=== PATIENT | female | born 1960 | race American Indian/Alaskan Native ===

== ENCOUNTER 2017-04-21 19:18 | Inpatient (IN) | payer OTHER ==
[2017-04-21] MEDS ORDERED: Sodium Chloride 0.9% 1,000 ML IV STA (19:27)
--- NOTE | 2017-04-21 19:35 | ED PDOC ---
Lower Extremity Pain/Injury Chief Complaint (Provider): Ankle Fracture History Per: Patient Additional Complaint(s): 57 yo female, PMH of DM, presents to ED with complaints of severe left ankle pain and deformity sustained from a near syncopal episode while waiting for the path. pt reports its very hot out and she believes she is dehydrated and became very dizzy and "stumbled." Pt reports she felt an immediate "pop" in her ankle and fell to the floor. Pt did not loose conciseness at anytime. No chest pain or SOB. No previous injury to affected extremity. <Marianne Ross - Last Filed: 04/21/17 19:29> <Marianne Nielsen - Last Filed: 04/21/17 23:41> Time Seen by Provider: 04/21/17 19:23 Chief Complaint (Nursing): Lower Extremity Problem/Injury Supervising Attending Note - Supervising Attending Note The Documented history was done by the: Physician Manager Lighting The documented physical exam was done by the: Physician Manager Lighting, Attending Physician - Attestation: I have personally seen and examined this patient.: Yes I have fully participated in the care of the patient.: Yes I have reviewed all pertinent clinical information, including history, physical exam and plan: Yes <Marianne Nielsen - Last Filed: 04/21/17 23:41> Past Medical History Reviewed: Nursing Documentation, Vital Signs Vital Signs: Last Vital Signs Temp 98.4 F 04/21/17 19:23 Pulse 81 04/21/17 19:23 Resp 16 04/21/17 19:23 BP 89/56 L 04/21/17 19:23 Pulse Ox 100 04/21/17 19:23 - Medical History PMH: Diabetes - Surgical History Surgical History: No Surg Hx - Family History Family History: States: Unknown Family Hx - Living Arrangements Living Arrangements: With Family - Social History Current smoker - smoking cessation education provided: No Alcohol: Social Drugs: Denies <Marianne Ross - Last Filed: 04/21/17 19:29> Vital Signs: Last Vital Signs Temp 98.4 F 04/21/17 19:23 Pulse 82 04/21/17 22:26 Resp 16 04/21/17 19:23 BP 89/56 L 04/21/17 19:23 Pulse Ox 100 04/21/17 22:26 <Marianne Nielsen - Last Filed: 04/21/17 23:41> - Home Medications Home Medications: Ambulatory Orders Medication Instructions Recorded Mv,Calcium,Min/Iron/Folic/Vitk 04/21/17 [Multi For Her Tablet] - Allergies Allergies/Adverse Reactions: Allergies Allergy/AdvReac Type Severity Reaction Status Date / Time No Known Allergies Allergy Verified 04/21/17 19:23 Review of Systems ROS Statement: Except As Marked, All Systems Reviewed And Found Negative Musculoskeletal: Positive for: Other (left ankle pain) <Marianne Ross Last Filed: 04/21/17 19:29> Physical Exam - Reviewed Nursing Documentation Reviewed: Yes Vital Signs Reviewed: Yes - Physical Exam Appears: Positive for: Well, Non-toxic, No Acute Distress Head Exam: Positive for: ATRAUMATIC, NORMAL INSPECTION, NORMOCEPHALIC Skin: Positive for: Normal Color, Warm, DRY Eye Exam: Positive for: EOMI, Normal appearance, PERRL ENT: Positive for: Normal ENT Inspection Neck: Positive for: Normal, Painless ROM Cardiovascular/Chest: Positive for: Regular Rate, Rhythm Respiratory: Positive for: CNT, Normal Breath Sounds Gastrointestinal/Abdominal: Positive for: Normal Exam, Bowel Sounds, Soft Back: Positive for: Normal Inspection Extremity: Positive for: Tenderness, Deformity, Swelling (ecchymosis) Neurologic/Psych: Positive for: Alert, Oriented <Marianne Ross - Last Filed: 04/21/17 19:29> - ECG O2 Sat by Pulse Oximetry: 100 <Marianne Ross - Last Filed: 04/21/17 19:29> - Laboratory Results Result Diagrams: 04/21/17 20:09 04/21/17 20:09 <Marianne Nielsen - Last Filed: 04/21/17 23:41> Medical Decision Making Medical Decision Making: IV access established and treatment initiated with [facility] ordered Podiatry consult placed Case endorsed to FLAVIA Lazo at 20:00 pending podiatry consult and diagnostic review <Marianne Ross Last Filed: 04/21/17 19:29> Disposition - Patient ED Disposition Is Patient to be Admitted: Transfer of Care (yang) - Disposition Disposition: Transfer of Care Disposition Time: 20:00 <Marianne Ross - Last Filed: 04/21/17 19:29> <Marianne Nielsen - Last Filed: 04/21/17 23:41> - Clinical Impression Clinical Impression: Near syncope, Fracture dislocation of ankle - Disposition Condition: FAIR ED Procedural Sedation <Marianne Ross - Last Filed: 04/21/17 19:29> - Pre Anesthesia Assessment Past Medical History: Medications Reviewed, Allergies Reviewed, Record Review Previous Surgies: Reviewed Family History/Social History: Reviewed - Physical Exam/Review of Systems Cardiovascular: Regular Rate and Rhythm, Murmurs, Normal S1, S2 Respiratory/Chest: Clear to Auscultation, Good Air Exchange Neurological: GCS=15, CN II-XII Intact, Speech Normal Abdomen: Tenderness, Distention Mental Status: Alert and Oriented X 3 - Pre-Procedure Airway Assessment History of difficult intubation or surgical airway (i.e trach):: No Inability to extend neck:: No Mouth opening less than two finger breadth:: No Diagnosis of sleep apnea:: No Less than three finger breadth to hyoid bone:: No ASA Criteria: 1 - Healthy, normal. 2 - Mild systemic disease (No functional limitations, mildline obesity, DM withot complications, Hypertention). 3 - Severe systemic disease (Some functional limitation, stable angina, morbid obesity, controlled COPD/Asthma/CHF). 4 - Sever systemic disease constant threat to life (Unstable angina, active symptoms of COPD/Asthma, CHF/ Hypertension. 5 - Moribund ASA Clarification: ASA II Mallampati (airway): Class I - Intra-Procedure (Medications) Medications Given: Sodium Chloride (Sodium Chloride 0.9%) 1,000 mls @ 125 mls/hr IV .Q8H STA Stop: 04/22/17 03:26 Last Admin: 04/21/17 20:05 Dose: 125 mls/hr Discontinued Medications Ketamine HCl (Ketalar) 10 mg IV ONCE ONE Stop: 04/21/17 20:19 Last Admin: 04/21/17 22:12 Dose: 2 ml Ketamine HCl (Ketalar) Confirm Administered Dose 500 mg .ROUTE .STK-MED ONE Stop: 04/21/17 21:19 Morphine Sulfate (Morphine) 4 mg IV ONCE ONE Stop: 04/21/17 19:27 Last Admin: 04/21/17 20:05 Dose: 4 mg Morphine Sulfate (Morphine) 4 mg IVP ONCE ONE Stop: 04/21/17 22:08 Last Admin: 04/21/17 22:13 Dose: 4 mg Morphine Sulfate (Morphine) 4 mg IVP ONCE ONE Stop: 04/21/17 22:31 Last Admin: 04/21/17 23:14 Dose: 4 mg Ondansetron HCl (Zofran Inj) 8 mg IV STAT STA Stop: 04/21/17 20:21 Last Admin: 04/21/17 21:32 Dose: 8 mg Ondansetron HCl (Zofran Inj) Confirm Administered Dose 8 mg .ROUTE .STK-MED ONE Stop: 04/21/17 21:14 Potassium Chloride (K-Dur 20 Meq Er Tab) 40 meq PO ONCE ONE Stop: 04/21/17 21:37 Last Admin: 04/21/17 22:18 Dose: 40 meq Potassium Chloride (K-Dur 20 Meq Er Tab) Confirm Administered Dose 40 meq PO .STK-MED ONE Stop: 04/21/17 22:18 Propofol (Diprivan) 200 mg IV ONCE ONE Stop: 04/21/17 20:19 Last Admin: 04/21/17 22:12 Dose: 200 mg Propofol (Diprivan) Confirm Administered Dose 200 mg .ROUTE .STK-MED ONE Stop: 04/21/17 21:13 - Post-Procedure Post Procedure Note: Pt awake and alert after procedure <Marianne Nielsen - Last Filed: 04/21/17 23:41> - Pre Anesthesia Assessment Chief Complaint: Lower Extremity Problem/Injury
--- NOTE | 2017-04-21 20:17 | CP.PCM.CON ---
History of Present Illness - History of Present Illness History of Present Illness: 57 year old female with PMHx including DM and bariatric surgery was seen today for left ankle pain. Patient states that today around 6:40 pm she was waiting for the PATH train and sustained a near syncopal episode. She states that it was very hot waiting for the train. She said she tripped backwards and felt a pop in her left ankle and fell. She states that she does not have any pain to the ankle when it is at rest, but when it is moved, she has a lot of pain. She states that yesterday her blood sugar was 160 mg/dL but states that she did not take her sugar this morning. She currently denies any n/v/f/c/sob/cp. Past Patient History - Past Social History Alcohol: Social Drugs: Denies Meds Allergies/Adverse Reactions: Allergies Allergy/AdvReac Type Severity Reaction Status Date / Time No Known Allergies Allergy Verified 04/21/17 19:23 - Medications Medications: Current Medications Sodium Chloride (Sodium Chloride 0.9%) 1,000 mls @ 125 mls/hr IV .Q8H STA Stop: 04/22/17 03:26 Last Admin: 04/21/17 20:05 Dose: 125 mls/hr Physical Exam - Constitutional Appears: Well, Non-toxic, No Acute Distress - Extremities Exam Additional comments: Left lower extremity focused exam: Vasc: DP and PT pulses palpable 2/4. CFT < 3 seconds to digits. Skin temperature warm to warm from proximal to distal. Neuro: Gross sensation intact Derm: Non-pitting edema noted to left ankle. No open wounds noted Ortho: Pain on palpation to left ankle. Patient is able to wiggle toes - Neurological Exam Neurological exam: Alert, Oriented x3 - Psychiatric Exam Psychiatric exam: Normal Affect, Normal Mood Results - Vital Signs Recent Vital Signs: Last Vital Signs Temp 98.4 F 04/21/17 19:23 Pulse 81 04/21/17 19:23 Resp 16 04/21/17 19:23 BP 89/56 L 04/21/17 19:23 Pulse Ox 100 04/21/17 19:37 - Labs Result Diagrams: 04/21/17 20:09 04/21/17 20:09 Assessment & Plan - Assessment and Plan (Free Text) Assessment: 57 year old female with displaced left ankle fracture Plan: patient examined and evaluated discussed with attending, Dr. Fuller chart, labs, vitals reviewed Explained conservative and surgical treatment options to patient, and pt expressed understanding, patient agreeable to surgical correction alternatives, complications, benefits, and risks to surgical procedure were explained to patient consent was obtained and left ankle closed reduction was performed in ED under conscisou sedation by ED attending, pt was splinted with plaster AO splint LLE CT ordered Pt to be NPO after midnight Ice elevation-2 pillows at all times pt to OR tomorrow at 5 pm, awaiting medical optimization podiatry will continue to follow patient while in house
[2017-04-21] MEDS ORDERED: Propofol 10 mg/ml Inj (20 ML) IV ONE (20:18)
[2017-04-21] MEDS ORDERED: Ketamine 50 mg/ml Inj (10 ml) IV ONE (20:18)
[2017-04-21 20:38] LABS: BASO % 0.4 % (0.0-2.0); EOS # 0.1 K/uL (0.0-0.7); EOS % 0.7 % (0.0-4.0); HEMOGLOBIN 12.8 g/dL (12.0-16.0); LYMPH # 2.5 K/uL (1.0-4.3); LYMPH % 19.6 % (20.0-40.0); MEAN CELL VOLUME 88.3 fl (81.0-99.0); MEAN CORPUSCULAR HGB CONC 31.7 g/dL (33.0-37.0); MEAN PLATELET VOLUME 9.4 fl (7.2-11.7); MONO # 1.2 K/uL (0.0-0.8); MONO % 9.6 % (0.0-10.0); NEUT # 8.8 K/uL (1.8-7.0); NEUT % 69.7 % (50.0-75.0); RBC 4.56 Mil/uL (3.80-5.20); WHITE BLOOD COUNT 12.7 K/uL (4.8-10.8)
[2017-04-21 20:56] LABS: ALB/GLOB RATIO 1.4 (1.0-2.1); ALBUMIN 4.4 g/dL (3.5-5.0); ALT/SGPT 31 U/L (9-52); AST/SGOT 38 U/L (14-36); BLOOD UREA NITROGEN 27 mg/dl (7-17); CALCIUM 9.7 mg/dL (8.4-10.2); GFR AFRICAN-AMERICAN 37; GFR NON-AFRICAN AMERICAN 31
[2017-04-21] MEDS ORDERED: Propofol 10 mg/ml Inj (20 ML) ONE (21:12)
[2017-04-21] MEDS ORDERED: Ketamine 50 mg/ml Inj (10 ml) ONE (21:18)
[2017-04-21] MEDS ORDERED: Potassium Chloride 20 mEq ER Tab PO ONE ×2 (21:36→22:17)
[2017-04-21 21:42] LABS: INR 1.1 (0.9-1.2); PARTIAL THROMBOPLASTIN TIME 28.8 Seconds (25.6-37.1); PROTHROMBIN TIME 12.7 Seconds (9.8-13.1)
--- NOTE | 2017-04-21 21:45 | ED PDOC ---
- Laboratory Results Result Diagrams: 04/21/17 20:09 04/21/17 20:09 - ECG ECG: Positive for: Viewed By Me (reviewed by ED attending) ECG Rhythm: Positive for: Sinus Rhythm O2 Sat by Pulse Oximetry: 100 - Radiology X-Ray: Viewed By Me X-Ray Interpretation: No Acute Disease <Angi Lazo - Last Filed: 04/22/17 01:38> - Laboratory Results Result Diagrams: 04/22/17 05:40 04/22/17 05:40 <Marianne Nielsen - Last Filed: 04/28/17 14:04> - Progress ED Course And Treament: Case endorsed to jingle writer from Vandana ALEJANDRO pending labs, podiatry eval Patient evaluated by Podiatry resident on-call; will do closed reduction in ED then admit for OR tomorrow evening. Consent for conscious sedation obtained by Dr. Nielsen. 21:30 Podiatry resident's, ED attending Dr. Nielsen at bedside for conscious sedation /reduction. 22:00 Post-reduction films show successful reduction 22:20 Patient awake, alert, oriented Dr. Nielsen discussed case with Dr. Salazar, medical service on-call, for admission. (Angi Lazo) Disposition - POA Present On Arrival: Falls Or Trauma, Poor Glycemic Control - Disposition Disposition: Admitted as In-Patient Disposition Time: 22:12 <Angi Lazo - Last Filed: 04/22/17 01:38> <Marianne Nielsen - Last Filed: 04/28/17 14:04> - Clinical Impression Clinical Impression: Near syncope, Fracture dislocation of ankle - Disposition Condition: FAIR
[2017-04-21] MEDS ORDERED: Morphine 4 MG/ML VIAL IVP ONE (22:30)
[2017-04-22] MEDS ORDERED: Alum-Mag Hydrox-Simethicone Susp (30 mL) PO PRN (01:33)
[2017-04-22] MEDS: Sodium Chloride 0.45% 1,000 ML IV SCH ×2 (01:45→17:54)
[2017-04-22] MEDS: Morphine 4 MG/ML VIAL IVP PRN ×2 (06:15→12:26)
[2017-04-22 07:01] LABS: HEMOGLOBIN 12.9 g/dL (12.0-16.0); MEAN CELL VOLUME 88.2 fl (81.0-99.0); MEAN CORPUSCULAR HEMOGLOBIN 27.7 pg (27.0-31.0); MEAN CORPUSCULAR HGB CONC 31.4 g/dL (33.0-37.0); RBC 4.65 Mil/uL (3.80-5.20); RED CELL DISTRIBUTION WIDTH 14.4 % (11.5-14.5); WHITE BLOOD COUNT 12.6 K/uL (4.8-10.8)
[2017-04-22 07:11] LABS: INR 1.1 (0.9-1.2); PROTHROMBIN TIME 11.9 Seconds (9.8-13.1)
[2017-04-22 07:12] LABS: PARTIAL THROMBOPLASTIN TIME 29.7 Seconds (25.6-37.1)
[2017-04-22 07:17] LABS: ALB/GLOB RATIO 1.3 (1.0-2.1); ALT/SGPT 34 U/L (9-52); AST/SGOT 20 U/L (14-36); BLOOD UREA NITROGEN 23 mg/dl (7-17); CALCIUM 9.5 mg/dL (8.4-10.2); GFR AFRICAN-AMERICAN > 60; GFR NON-AFRICAN AMERICAN 57; HDL CHOLESTEROL 34 MG/DL (30-70)
[2017-04-22 07:21] LABS: T4 8.62 ug/dl (5.5-11.0)
[2017-04-22 07:27] LABS: LDL CHOLESTEROL 147 mg/dL (0-129)
--- NOTE | 2017-04-22 08:07 | CARD ---
APPROVED REPORT EKG Measurement Heart [id number] <Conclusion> Normal sinus rhythm Borderline ECG
--- NOTE | 2017-04-22 08:51 | CP.PCM.PN ---
Subjective - Date & Time of Evaluation Date of Evaluation: 04/22/17 Time of Evaluation: 08:00 - Subjective Subjective: 57 y/o female was seen bedside 1 day s/p ankle trauma secondary to syncopal episode. Pt is AAOx3 and is in NAD. Pt appears to be resting comfortably in her bed. Pt denies of any pain in her ankle today. Pt states that she has not eaten anything since yesterday. Pt denies of any acute overnight events. Pt denies of any F/N/V/C/SOB today. Pt denies of any other pedal complains today. Objective - Vital Signs/Intake and Output Vital Signs (last 24 hours): Temp Pulse Resp BP Pulse Ox 97.8 F 69 20 123/77 98 04/22/17 07:53 04/22/17 07:53 04/22/17 07:53 04/22/17 07:53 04/22/17 07:53 - Medications Medications: Current Medications Al Hydrox/Mg Hydrox/Simethicone (Maalox Plus 30 Ml) 30 ml PO Q6 PRN PRN Reason: Indigestion / Heartburn Sodium Chloride (Sodium Chloride 0.45%) 1,000 mls @ 70 mls/hr IV .[id number] [facility] Stop: 04/23/17 01:35 Last Admin: 04/22/17 01:45 Dose: 70 mls/hr Insulin Human Lispro (Humalog) 0 units SC ACCU-CHECK CRISTHIAN PRN Reason: Protocol Morphine Sulfate (Morphine) 4 mg IVP Q4 PRN PRN Reason: Pain, severe (8-10) Last Admin: 04/22/17 06:15 Dose: 4 mg Ondansetron HCl (Zofran Inj) 4 mg IVP Q6 PRN PRN Reason: Nausea/Vomiting Pantoprazole Sodium (Protonix Ec Tab) 40 mg PO DAILY CRISTHIAN - Labs Labs: 04/22/17 05:40 04/22/17 05:40 PT 11.9 Seconds (9.8-13.1) 04/22/17 05:40 INR 1.1 (0.9-1.2) 04/22/17 05:40 APTT 29.7 Seconds (25.6-37.1) 04/22/17 05:40 - Constitutional Appears: Well, Non-toxic, No Acute Distress - Extremities Exam Additional comments: Pt's dressing is clean, dry and intact. Posterior splint is intact and is in place. - Neurological Exam Neurological Exam: Alert, Awake, Oriented x3 - Psychiatric Exam Psychiatric exam: Normal Affect, Normal Mood Assessment and Plan - Assessment and Plan (Free Text) Assessment: 57 y/o female seen at bedside with displaced left ankle fracture Plan: Pt evaluated and chart reviewed Pt discussed in details with attending Dr. Fuller Labs and vital reviewed: afebrile Pt confirmed NPO status Pt obtained medical optimization - Thank you Dr. Salazar Pt to remain non weight bearing on left lower extremity Pt to elevate her LLE and ICE Pt planned to go to OR for left ankle ORIF at 5:00 PM Podiatry will continue to follow patient while in-house
[2017-04-22] MEDS: Pantoprazole 40 mg EC Tab PO SCH (09:07)
[2017-04-22] MEDS: Insulin Lispro (humaLOG) 100 Units/ml Inj SC SCH ×4 (09:07→22:53)
[2017-04-22] MEDS ORDERED: Pneumococcal 23-Valent Vaccine IM ONE (10:21)
--- NOTE | 2017-04-22 10:45 | RAD ---
HISTORY: clearance COMPARISON: No prior. FINDINGS: LUNGS: The lungs are well inflated and clear. PLEURA: No significant pleural effusion identified, no pneumothorax apparent. CARDIOVASCULAR: Normal. OSSEOUS STRUCTURES: No significant abnormalities. VISUALIZED UPPER ABDOMEN: Normal. OTHER FINDINGS: None. IMPRESSION: No active pulmonary disease.
--- NOTE | 2017-04-22 11:43 | CT ---
PROCEDURE: CT of the left ankle. HISTORY: Ankle fracture COMPARISON: Plain radiographs from 04/21/2017. TECHNIQUE: Contiguous axial images of the left hip were obtained. Coronal and sagittal reformats were generated. This CT exam was performed using one or more of the following dose reduction techniques: Automated exposure control, adjustment of the mA and/or kV according to patient size, and/or use of iterative reconstruction technique. Radiation dose: 273.05 DLP FINDINGS: BONES: There is a comminuted fracture in the distal fibula with 5 mm posterior displacement and 4 mm lateral displacement without significant angulation. There is an acute longitudinal fracture in the posterior tibia with 5 mm posterior displacement without significant angulation. Bone mineralization is normal. There is also an acute nondisplaced fracture in the dorsal talar neck . There is widening of the medial ankle mortise and medial displacement of the tibia and fibula. No evidence of joint effusion. SOFT TISSUES: There is diffuse subcutaneous edema and soft tissue swelling. IMPRESSION: 1. Acute comminuted fracture in the distal tibial avid 5 mm posterior displacement and 4 mm lateral displacement. No significant angulation. 2. Acute longitudinal fracture in the posterior tibia with 5 mm posterior displacement without significant angulation. 3. Acute nondisplaced fracture in the dorsal talar dome. 4. Widening of the medial ankle mortise and medial displacement of the tibia and fibula. A preliminary report was provided by [employer] [facility].
--- NOTE | 2017-04-22 11:56 | CP.PCM.HP ---
History of Present Illness - History of Present Illness History of Present Illness: Medical Cleara, Fx L ankle for Surgery Patient had near syncopal episode while waiting the Path.Patient states was very hot out and She felt dehydrated , became dizzy and stumbled, She never fell on the floor because She was helped , She fell a pop in her ankle, Patient denies LOC , C/P, SOB, Palpitayions , headache. No previous Hx of syncope , Hx of HTN , She had " Gastric by pass December of this year and there after was off BP med., weight loss 45 lbs to current date . Hx DM on Novolog sliding scale Surgical Hx : Gastric By pass" December 2016 , Feeding tube 33525 for Gastroparesis, DC after 3 months Smoking ( neg) , ETOH rare social drink , FHx DM EKG : RSR , CXR : no active Pulmonary disease CBC , PT , PTT , INR , CMP reviewed Ankle X ray, lower extremity CT pending report Present on Admission - Present on Admission Any Indicators Present on Admission: No Review of Systems - Constitutional Constitutional: Weight Loss - EENT Eyes: Other (neg) Ears: Other (neg) Nose/Mouth/Throat: Other (neg) - Cardiovascular Cardiovascular: Other (neg) - Respiratory Respiratory: Other (neg) - Gastrointestinal Gastrointestinal: Other (nrg) - Genitourinary Genitourinary: Other (neg) - Musculoskeletal Musculoskeletal: Joint Swelling (L ankle with pain) - Integumentary Integumentary: Other (neg) - Neurological Neurological: Other (neg) - Psychiatric Psychiatric: Other (neg) - Endocrine Endocrine: Other (neg) Past Patient History - Past Medical History & Family History Past Medical History?: Yes Pertinent Family History: DM - Past Social History Smoking Status: Never Smoked Alcohol: Occasional Drugs: Denies - CARDIAC Hx Hypertension: Yes - PULMONARY Hx Respiratory Disorders: No - NEUROLOGICAL Hx Neurological Disorder: No - HEENT Hx HEENT Problems: No - RENAL Hx Chronic Kidney Disease: No - ENDOCRINE/METABOLIC Hx Endocrine Disorders: Yes Hx Diabetes Mellitus Type 1: Yes - HEMATOLOGICAL/ONCOLOGICAL Hx Blood Disorders: No - INTEGUMENTARY Hx Dermatological Problems: No - MUSCULOSKELETAL/RHEUMATOLOGICAL Hx Musculoskeletal Disorders: No Hx Falls: Yes - GASTROINTESTINAL Hx Gastrointestinal Disorders: No - GENITOURINARY/GYNECOLOGICAL Hx Genitourinary Disorders: No - PSYCHIATRIC Hx Psychophysiologic Disorder: No Hx Substance Use: No - SURGICAL HISTORY Hx Surgeries: Yes Other/Comment: Gastric by pass surgery December 2016 , feeding tube( for Gastroparesis ) 1999 - ANESTHESIA Hx Anesthesia: Yes Hx Anesthesia Reactions: No Meds Allergies/Adverse Reactions: Allergies Allergy/AdvReac Type Severity Reaction Status Date / Time No Known Allergies Allergy Verified 04/21/17 19:23 Physical Exam - Constitutional Appears: No Acute Distress - Head Exam Head Exam: NORMAL INSPECTION - Eye Exam Eye Exam: EOMI, PERRL - ENT Exam ENT Exam: Normal Exam - Neck Exam Neck exam: Positive for: Normal Inspection - Respiratory Exam Respiratory Exam: NORMAL BREATHING PATTERN - Cardiovascular Exam Cardiovascular Exam: REGULAR RHYTHM - GI/Abdominal Exam GI & Abdominal Exam: Normal Bowel Sounds, Soft - Extremities Exam Extremities exam: Positive for: tenderness (L leg-foot inmobilizer, able to wiggle toes) - Back Exam Back exam: NORMAL INSPECTION - Neurological Exam Neurological exam: Alert, Oriented x3 Additional comments: no motor/sensory deficit - Psychiatric Exam Psychiatric exam: Normal Affect, Normal Mood - Skin Skin Exam: Warm Results - Vital Signs Recent Vital Signs: Last Vital Signs Temp 97.8 F 04/22/17 07:53 Pulse 69 04/22/17 07:53 Resp 20 04/22/17 07:53 BP 123/77 04/22/17 07:53 Pulse Ox 98 04/22/17 07:53 - Labs Result Diagrams: 04/22/17 05:40 04/22/17 05:40 Labs: Laboratory Results - last 24 hr 04/21/17 04/22/17 04/22/17 22:23 05:40 05:40 WBC 12.6 H RBC 4.65 Hgb 12.9 Hct 41.0 MCV 88.2 MCH 27.7 MCHC 31.4 L RDW 14.4 Plt Count 231 PT 11.9 INR 1.1 APTT 29.7 Sodium Potassium Chloride Carbon Dioxide Anion Gap BUN Creatinine Est GFR ( Amer) Est GFR (Non-Af Amer) POC Glucose (mg/dL) 230 H Random Glucose Calcium Total Bilirubin AST ALT Alkaline Phosphatase Total Protein Albumin Globulin Albumin/Globulin Ratio Triglycerides Cholesterol LDL Cholesterol Direct HDL Cholesterol Thyroxine (T4) TSH 3rd Generation 04/22/17 04/22/17 04/22/17 05:40 05:47 10:36 WBC RBC Hgb Hct MCV MCH MCHC RDW Plt Count PT INR APTT Sodium 138 Potassium 3.9 Chloride 103 Carbon Dioxide 26 Anion Gap 13 BUN 23 H Creatinine 1.0 Est GFR ( Amer) > 60 Est GFR (Non-Af Amer) 57 POC Glucose (mg/dL) 141 H 138 H Random Glucose 148 H Calcium 9.5 Total Bilirubin 0.5 AST 20 ALT 34 Alkaline Phosphatase 131 H Total Protein 7.2 Albumin 4.0 Globulin 3.1 Albumin/Globulin Ratio 1.3 Triglycerides 127 Cholesterol 228 H LDL Cholesterol Direct 147 H HDL Cholesterol 34 Thyroxine (T4) 8.62 TSH 3rd Generation 1.83 Assessment & Plan (1) Fracture dislocation of ankle Status: Acute Priority: High (2) Near syncope Status: Acute Priority: High (3) Diabetes mellitus Status: Chronic Priority: High (4) Hyperlipidemia Status: Chronic Priority: Medium - Assessment and Plan (Free Text) Plan: Patient is medically cleared for Surgery.
--- NOTE | 2017-04-22 13:42 | RAD ---
PROCEDURE: Left Ankle Radiographs. HISTORY: s/p left ankle closed reducation COMPARISON: April 21, 2017. CT left ankle FINDINGS: BONES: Status post reduction of distal fibular and tibial fractures. Major fracture fragments are anatomically aligned. Approximately stable displacing compared to the prior CT scan 04/21/2017. JOINTS: Normal. No osteoarthritis. Ankle mortise maintained. Talar dome intact SOFT TISSUES: Normal. OTHER FINDINGS: None. IMPRESSION: No significant interval change compared to the prior examination(s).
[2017-04-22] MEDS ORDERED: Lidocaine 1% Inj (20ml) IJ ONE (14:53)
[2017-04-22] MEDS ORDERED: ceFAZolin 1 GM in Sodium Chloride 0.9% 100 ML IVPB ONE (14:53)
[2017-04-22] MEDS ORDERED: Bupivacaine 0.5% 50 ML IJ ONE (14:53)
[2017-04-22] MEDS ORDERED: MethylPREDNISolone Depo 40 mg/ml Inj ONE (17:33)
[2017-04-22] MEDS ORDERED: Bupivacaine 0.5% Inj(30mL) ONE (17:33)
[2017-04-22] MEDS ORDERED: Dexamethasone 4 mg/1 ml ONE (17:33)
[2017-04-22] MEDS ORDERED: Lidocaine 1% Inj (20ml) ONE (17:33)
[2017-04-22] MEDS ORDERED: Lidocaine 4% (Laryng-O-Jet) Kit MM ONE (17:46)
[2017-04-22] MEDS ORDERED: Midazolam 2 MG/2 ML VIAL ONE (17:46)
[2017-04-22] MEDS ORDERED: Succinylcholine 200 mg/10 ml Inj IV ONE (17:46)
[2017-04-22] MEDS ORDERED: Propofol 10 mg/ml Inj (20 ML) ONE (17:46)
[2017-04-22] MEDS ORDERED: Lidocaine Hydrochloride 5 ML INJ ONE (17:47)
[2017-04-22] MEDS: Sodium Chloride 0.9% 1,000 ML IV SCH (17:54)
[2017-04-22] MEDS ORDERED: Bacitracin Ointment 30 GM TUBE ONE (18:10)
[2017-04-22] MEDS ORDERED: Lactated Ringer's 1,000 ML IV ONE (18:35)
[2017-04-22] MEDS ORDERED: Ropivacaine 0.5% 30ML IV ONE (20:37)
[2017-04-22] MEDS ORDERED: Lidocaine 2% MPF (5 ml) Inj ONE (20:40)
[2017-04-22] MEDS ORDERED: Oxycodone/Acetaminophen 5/325 mg Tab PO PRN (21:04)
--- NOTE | 2017-04-22 21:07 | PCM.SURG1 ---
<Rboin Anderson - Last Filed: 04/22/17 21:24> Surgeon's Initial Post Op Note - Surgeon's Notes Surgeon: Dr. Fuller Assistive Technology Trainer: Chase Herring PGY-3, Darien Kumar PGY-3, Robin Anderson PGY-3 Type of Anesthesia: General LMA, Block Regional Anesthesia Administered By: Dr. Swann Pre-Operative Diagnosis: Left ankle fracture Operative Findings: See dicatation. Hemostasis: PTT @350. Anesthesia: Gen LMA with Regional block. Materials: 2.7mm VA CCp locking 10mm (x2),12mm (x2) 14mm, 2.7 non-locking 16mm, 18mm, 3.5 mm cortex 16mm, 18mm, 4.0 cannulated x 38mm <Jyoti Kumar - Last Filed: 04/22/17 22:29> Surgeon's Initial Post Op Note - Surgeon's Notes Post-Operative Diagnosis: same Operation Performed: ORIF of a left ankle fracture Specimen/Specimens Removed: none Estimated Blood Loss: EBL {In ML}: 5 Blood Products Given: N/A Drains Used: No Drains Post-Op Condition: Good Date of Surgery/Procedure: 04/22/17 Time of Surgery/Procedure: 09:30
[2017-04-22 21:13] LABS: SQUAMOUS EPITHIAL 6 /hpf (0-5); URINE BACTERIA RARE (<OCC); URINE BILIRUBIN NEGATIVE (NEGATIVE); URINE BLOOD SMALL (NEGATIVE); URINE CLARITY SLIGHTY-CLOUDY (Clear); URINE COLOR YELLOW (YELLOW); URINE GLUCOSE (UA) NEG (Normal); URINE LEUKOCYTE ESTERASE NEG Leu/uL (Negative); URINE NITRATE NEGATIVE (NEGATIVE); URINE PROTEIN NEGATIVE (NEGATIVE); URINE UROBILINOGEN 0.2-1.0 mg/dL (0.2-1.0)
[2017-04-22] MEDS ORDERED: HYDROmorphone 0.5 mg/0.5 ml ISec IVP PRN (21:24)
[2017-04-22] MEDS: Lactated Ringer's 1,000 ML IV SCH (21:25)
--- NOTE | 2017-04-22 21:30 | PCM.ANESB2 ---
Popliteal Nerve Block - Popliteal Nerve Block Date of Procedure: 04/22/17 Anesthesiologist: Dr. Ferrara Pre-Procedure Diagnosis: S/P ORIF left ankle fracture Post-Procedure Diagnosis: S/P ORIF left ankle fracture Procedure Performed: Popliteal Nerve Block Left - Procedure Popliteal Nerve Block: This procedure was explained to the patient that it is for post-operative pain management. Consent was obtained after a thorough discussion with the patient regarding the benefits and possible complications of local anesthetic block of the sciatic nerve at the popliteal level. The patient was brought to the operating room and standard monitors are applied. Time-out was held with the circulating nurse to confirm the correct side and the appropriate block. After the surgery while still under general anesthesia, patient's operative leg was gently raised and supported and the groove in between the biceps femoris and vastus lateralis muscles was carefully palpated. The skin approximately 8cm above the popliteal crease was then marked. The ultrasound transducer was then applied to the posterior thigh approximately 8cm above the popliteal crease in the transverse plane and the sciatic nerve before its division was visualized lateral to the popliteal artery and in between the bicep femoris and semimembranosus/semitendinosus muscles. After identification, the lateral portion of the thigh was prepped with chloraprep solution. At this point, a # 21 gauge Stimuplex insulated 4 inch needle was inserted into pre-marked area and advanced in a perpendicular direction. The needle was inserted above the ultrasound transducer in-plane towards the sciatic nerve in a depaxiw-yv-romwwa direction. Needle advancement was performed carefully under direct ultrasound visualization. Nerve stimulator was used and dorsiflexion of the left foot was elicited at a current of 0.3MA. After repeated negative aspiration, 5cc of 0.5% ropivacaine was injected and this was flowed with 15 cc of 0.5% ropivacaine and 5cc of 2% lidocaine. Under ultrasound guidance the local anesthetics were observed tenting the epidural sheath and surrounding the roots of the sciatic nerve. The needle was removed intact and sterile dressing was applied. The patient tolerated the popliteal nerve block well with stable vital signs and was subsequently awaken from anesthesia. Then trasnsported to PACU in stable condition.
[2017-04-23 00:39] VITALS: TEMP 98.1
[2017-04-23] MEDS: Lactated Ringer's 1,000 ML IV SCH (05:05)
[2017-04-23] MEDS: Oxycodone/Acetaminophen 5/325 mg Tab PO PRN ×2 (05:26→11:34)
[2017-04-23 07:42] VITALS: BP 142/84; PULSE 78; RESP 18; O2SAT 100
[2017-04-23] MEDS ORDERED: Enoxaparin 40 mg Syringe SC SCH (09:00)
[2017-04-23] MEDS: Pantoprazole 40 mg EC Tab PO SCH (09:32)
[2017-04-23] MEDS: Sodium Chloride 0.9% 1,000 ML IV SCH (10:03)
--- NOTE | 2017-04-23 10:59 | CP.PCM.PN ---
Subjective - Date & Time of Evaluation Date of Evaluation: 04/23/17 Time of Evaluation: 10:56 - Subjective Subjective: 57 y/o female was seen bedside with attending Dr. Fuller 1 day s/p ORIF of left ankle fracture. Pt appears to be resting comfortably in her bed. Pt is AAOx3 and is in NAD. Pt states that she has little pain in her ankle but she is managing it well. Pt denies of any acute overnight events. Pt denies of any F/N/ V/C/SOB today. Pt denies of any other pedal complains today. Objective - Vital Signs/Intake and Output Vital Signs (last 24 hours): Temp Pulse Resp BP Pulse Ox 98.1 F 78 18 142/84 100 04/23/17 07:42 04/23/17 07:42 04/23/17 07:42 04/23/17 07:42 04/23/17 07:42 Intake and Output: 04/23/17 04/23/17 06:59 18:59 Intake Total 100 Output Total 200 Balance -100 - Medications Medications: Current Medications Acetaminophen (Tylenol 325mg Tab) 650 mg PO Q4 PRN PRN Reason: Pain, Mild (1-3) Al Hydrox/Mg Hydrox/Simethicone (Maalox Plus 30 Ml) 30 ml PO Q6 PRN PRN Reason: Indigestion / Heartburn Enoxaparin Sodium (Lovenox) 40 mg SC DAILY CRISTHIAN PRN Reason: Protocol Last Admin: 04/23/17 09:32 Dose: 40 mg Sodium Chloride (Sodium Chloride 0.9%) 1,000 mls @ 120 mls/hr IV .Q8H20M [facility] Stop: 04/23/17 14:54 Last Admin: 04/23/17 10:03 Dose: Not Given Lactated Ringer's (Lactated Ringer's) 1,000 mls @ 100 mls/hr IV .Q10H CRISTHIAN Last Admin: 04/23/17 05:05 Dose: 100 mls/hr Insulin Human Lispro (Humalog) 0 units SC ACCU-CHECK CRISTHIAN PRN Reason: Protocol Last Admin: 04/22/17 22:53 Dose: Not Given Morphine Sulfate (Morphine) 4 mg IVP Q4 PRN PRN Reason: Pain, severe (8-10) Last Admin: 04/22/17 12:26 Dose: 4 mg Ondansetron HCl (Zofran Inj) 4 mg IVP Q6 PRN PRN Reason: Nausea/Vomiting Oxycodone/Acetaminophen (Percocet 5/325 Mg Tab) 1 tab PO Q4 PRN PRN Reason: Pain, moderate (4-7) Stop: 04/25/17 21:05 Last Admin: 04/23/17 05:26 Dose: 1 tab Oxycodone/Acetaminophen (Percocet 5/325 Mg Tab) 2 tab PO Q4 PRN PRN Reason: Pain, severe (8-10) Stop: 04/25/17 21:05 Pantoprazole Sodium (Protonix Ec Tab) 40 mg PO DAILY CRISTHIAN Last Admin: 04/23/17 09:32 Dose: 40 mg - Labs Labs: 04/22/17 05:40 04/22/17 05:40 PT 11.9 Seconds (9.8-13.1) 04/22/17 05:40 INR 1.1 (0.9-1.2) 04/22/17 05:40 APTT 29.7 Seconds (25.6-37.1) 04/22/17 05:40 - Constitutional Appears: Well, Non-toxic, No Acute Distress - Extremities Exam Additional comments: Pt's dressing is clean, dry and intact. Posterior splint is intact and is in place. VASC: Cap refill time: < 3 sec x 5 ORTHO: active ROM intact at MTPJ - Neurological Exam Neurological Exam: Alert, Awake, Oriented x3 - Psychiatric Exam Psychiatric exam: Normal Affect, Normal Mood Assessment and Plan - Assessment and Plan (Free Text) Assessment: 57 y/o female seen at bedside 1 day s/p ORIF of displaced left ankle fracture Plan: Pt evaluated and chart reviewed Pt evaluated with attending Dr. Fuller Labs and vital reviewed: afebrile Pt to remain non weight bearing on left lower extremity Pt to elevate her LLE and Ice Pt to follow up in clinic for post-op check Pt demonstrated verbal understanding Pt is stable from podiatry standpoint Podiatry will continue to follow patient while in-house
--- NOTE | 2017-04-23 11:08 | RAD ---
PROCEDURE: Left ankle Radiographs. Left ankle dated 04/22/2017 HISTORY: Status post ORIF ankle fracture COMPARISON: Comparison made with prior study dated 04/21/2017 FINDINGS: Findings: BONES: Current study reveals ORIF changes previously noted fractures of the distal fibula and posterior malleolus. Sideplate has been attached to the distal lateral fibula by multiple threaded screws. There is also a compression screw traversing distal tibia reducing fracture of the posterior malleolus. There is satisfactory alignment. Ankle mortise maintained. Expected postoperative changes, which include mild soft tissue swelling with a small amount subcutaneous air. Impression: Status post ORIF fractures of the distal fibula and tibia. Satisfactory alignment. Postoperative changes LS within the surrounding soft tissues as above
[2017-04-23] MEDS: Insulin Lispro (humaLOG) 100 Units/ml Inj SC SCH ×2 (12:03→12:36)
[2017-04-23] MEDS ORDERED: Lactulose 10 gm/15 ml Syrup PO PRN (13:20)
--- NOTE | 2017-04-23 15:38 | RAD ---
PROCEDURE: Intraoperative Fluoroscopy. HISTORY: LEFT ANKLE FINDINGS: Fluoroscopic assistance was provided. . Approximately 33.8 seconds of fluoroscopy time utilized during this procedure. Radiation dose = 0.8 mGy Please refer to the operative report for additional details.
--- NOTE | 2017-04-23 15:54 | CP.PCM.PN ---
Subjective - Date & Time of Evaluation Date of Evaluation: 04/23/17 Time of Evaluation: 10:30 - Subjective Subjective: F/U: S/P ORIF of displaced L ankle Fx. Pt doing well post-op, no c/o of pain in the L ankle now. Objective - Vital Signs/Intake and Output Vital Signs (last 24 hours): Temp Pulse Resp BP Pulse Ox 98.1 F 78 18 142/84 100 04/23/17 07:42 04/23/17 07:42 04/23/17 07:42 04/23/17 07:42 04/23/17 07:42 Intake and Output: 04/23/17 04/23/17 06:59 18:59 Intake Total 100 Output Total 200 Balance -100 - Labs Labs: 04/22/17 05:40 04/22/17 05:40 PT 11.9 Seconds (9.8-13.1) 04/22/17 05:40 INR 1.1 (0.9-1.2) 04/22/17 05:40 APTT 29.7 Seconds (25.6-37.1) 04/22/17 05:40 - Constitutional Appears: No Acute Distress - Head Exam Head Exam: NORMAL INSPECTION - Eye Exam Eye Exam: PERRL - ENT Exam ENT Exam: Normal Oropharynx - Neck Exam Neck Exam: Normal Inspection - Respiratory Exam Respiratory Exam: NORMAL BREATHING PATTERN - Cardiovascular Exam Cardiovascular Exam: REGULAR RHYTHM - GI/Abdominal Exam GI & Abdominal Exam: Soft, Normal Bowel Sounds - Extremities Exam Extremities Exam: Pedal Edema (Left) Additional comments: L ankle dressing in place. - Back Exam Back Exam: NORMAL INSPECTION - Neurological Exam Neurological Exam: Alert, Oriented x3. absent: Motor Sensory Deficit - Psychiatric Exam Psychiatric exam: Normal Affect, Normal Mood - Skin Skin Exam: Normal Color, Warm Assessment and Plan (1) Fracture dislocation of ankle Status: Acute (2) Near syncope Status: Acute (3) Diabetes mellitus Status: Chronic (4) Hyperlipidemia Status: Chronic - Assessment and Plan (Free Text) Plan: Pt cleared by [employer], Pt improved and stable to be discharged, see instruction medication sheet, f/u with [employer] and PMD.
--- NOTE | 2017-04-27 08:57 | OP ---
PROCEDURE DATE: 04/22/2017 PREOPERATIVE DIAGNOSIS: Left ankle fracture. POSTOPERATIVE DIAGNOSIS: Left ankle fracture. PROCEDURE: PERFORMED: Open reduction and internal fixation of the left ankle fracture. SURGEON: Dr. Mendoza Fuller DPM PAPERBOARD BOX MAKER: 1. Chase Herring DPM 2. Darien Kumar DPM 3. Robin Anderson DPM. TYPE OF ANESTHESIA: General and popliteal block. ANESTHESIOLOGIST: Ollie Ferrara MD. INDICATIONS: The patient is a 57-year-old female with the aforementioned diagnosis. The patient suffered a traumatic injury to the left ankle on 04/21/2013 which was confirmed with diagnostic imaging. The patient seeks surgical intervention at this time. All questions were addressed and answered. All alternative benefits, complications, risk of the surgical procedure were explained to the patient and family to their understanding. The patient verbalized understanding and wished to proceed. The patient signed the consent and it appears that it was confirmed by bringing the patient in the operating room. OPERATIVE PROCEDURE: The patient was brought in the operating room and placed on the operating table in supine position. A pneumatic thigh tourniquet was applied to the left thigh. After induction of general sedation, the foot and ankle were prepped and draped in the normal sterile manner and the procedure began. PROCEDURE: Open reduction and internal fixation of the left ankle fracture. Attention was directed to the lateral aspect of the patient's left ankle where a linear longitudinal incision was made utilizing a #15 blade. Incision was deepened through the superficial and subcutaneous tissue utilizing a sharp and blunt dissection. Care was taken to retract all vital neurovascular structures. Incision was then carried down to the periosteal level of the distal fibula where a hematoma was noted in the fracture area. The fracture site in the distal fibula could be visualized at this time, and it was noted to be comminuted with a large fracture fragment rotated within the main fracture site. Next, utilizing a #15 blade, the periosteum and any impeding soft tissue was cleared from the fracture site. A dental pick and curette were also utilized to remove any hematoma or flush the debris from within the fracture site. Normal sterile saline was then utilized to flush the fracture site to remove any remaining debris. Once all debris have been accurately removed from the fracture site, bone reduction forceps were utilized to attempt reduction of the fracture site. At this time, the comminuted fracture fragment was removed from the fracture site and passed to the back table as it was impeding accurate reduction. Bone reduction clamps were then used again to reduce the main fracture. An intraoperative fluoroscopy was utilized to ensure successful reduction of fracture. The fracture reduction was then temporarily held utilizing bone reduction forceps. Next, a Synthes 2.7 mm cortical screw was inserted across the fracture site utilizing standard AO technique as an interfragmentary compression screw. It was noted that there was excellent compression across the fracture site after insertion of this screw. Next a Synthes 4-hole VA-LCP distal lateral fibula plate was placed in the correct position on the lateral aspect of the fibula. Intraoperative fluoroscopy was utilized to ensure that the plate was in the appropriate position. Once the plate was found to be in an appropriate position, the plate was fixated to the lateral aspect of the fibula utilizing two Synthes 3.5 mm cortical screws and four Synthes 2.7 mm locking screws. All screws were inserted utilizing standard AO technique. Intraoperative fluoroscopy was utilized to ensure that all screws proximally at the fracture site were inserted bicortically and all screws inserted distally to the fracture site did not violate the ankle joint. At this time, intraoperative fluoroscopy was again utilized and it was noted that there was excellent reduction and adequate fixation of the fibula fracture. Attention was then directed to the posterior malleolar fracture. It was noted on intraoperative fluoroscopy that after reduction of the fibular fracture the posterior malleolar fracture was in appropriate alignment and reduction. Two guidewires from the Synthes 4.0 mm cannulated screw set were then inserted anteriorly to posteriorly across the distal tibia into the posterior malleolar fracture fragment. Intraoperative fluoroscopy was utilized to confirm appropriate positioning of the guidewires. Next, one Synthes 4.0 mm cannulated screw was inserted over the most distal guidewire from anterior to posterior through the distal tibia and posterior fracture fragment. Intraoperative fluoroscopy was utilized to confirm appropriate placement and adequate fixation of the posterior malleolar fracture fragment. The surgery site was then flushed with copious amounts of sterile normal saline. The periosteal layer was then approximated utilizing 2-0 Vicryl suture. The deep layers were reapproximated utilizing 3-0 Vicryl suture. The subcutaneous layers were reapproximated utilizing 4-0 Vicryl suture. The skin was reapproximated utilizing 4-0 nylon suture. Intraoperative injection consisted of 10 ml of 0.5% Marcaine plain. Post-op bandages consisted of betadine soaked Adaptic, DSD, Peter, Osmany bandage, and posterior ankle splint. POSTOPERATIVE CONDITION: The patient tolerated the procedure and anesthesia well with no apparent complications or complaints. The patient was escorted from the OR to recovery room with vital signs stable and neurovascular structures intact. The patient will follow up with Dr. Fuller in his office on an outpatient basis. Chase Herring DPM LIAT
--- NOTE | 2017-04-28 12:28 | CP.PCM.DIS ---
Provider - Provider Date of Admission: 04/21/17 22:13 Attending physician: Nakul Salazar MD Consults: Podiatry. Time Spent in preparation of Discharge (in minutes): 25 Diagnosis - Discharge Diagnosis (1) Fracture dislocation of ankle Status: Acute Priority: High (2) Near syncope Status: Acute Priority: High (3) Diabetes mellitus Status: Chronic Priority: High (4) Hyperlipidemia Status: Chronic Priority: Medium Hospital Course - Lab Results Lab Results: Most Recent Lab Values WBC 12.6 K/uL (4.8-10.8) H 04/22/17 05:40 RBC 4.65 Mil/uL (3.80-5.20) 04/22/17 05:40 Hgb 12.9 g/dL (12.0-16.0) 04/22/17 05:40 Hct 41.0 % (34.0-47.0) 04/22/17 05:40 MCV 88.2 fl (81.0-99.0) 04/22/17 05:40 MCH 27.7 pg (27.0-31.0) 04/22/17 05:40 MCHC 31.4 g/dL (33.0-37.0) L 04/22/17 05:40 RDW 14.4 % (11.5-14.5) 04/22/17 05:40 Plt Count 231 K/uL (130-400) 04/22/17 05:40 MPV 9.4 fl (7.2-11.7) 04/21/17 20:09 Neut % (Auto) 69.7 % (50.0-75.0) 04/21/17 20:09 Lymph % (Auto) 19.6 % (20.0-40.0) L 04/21/17 20:09 [place] % (Auto) 9.6 % (0.0-10.0) 04/21/17 20:09 Eos % (Auto) 0.7 % (0.0-4.0) 04/21/17 20:09 Baso % (Auto) 0.4 % (0.0-2.0) 04/21/17 20:09 Neut # 8.8 K/uL (1.8-7.0) H 04/21/17 20:09 Lymph # 2.5 K/uL (1.0-4.3) 04/21/17 20:09 [place] # 1.2 K/uL (0.0-0.8) H 04/21/17 20:09 Eos # 0.1 K/uL (0.0-0.7) 04/21/17 20:09 Baso # 0.0 K/uL (0.0-0.2) 04/21/17 20:09 PT 11.9 Seconds (9.8-13.1) 04/22/17 05:40 INR 1.1 (0.9-1.2) 04/22/17 05:40 APTT 29.7 Seconds (25.6-37.1) 04/22/17 05:40 Sodium 138 mmol/l (132-148) 04/22/17 05:40 Potassium 3.9 MMOL/L (3.6-5.0) 04/22/17 05:40 Chloride 103 mmol/L (98-107) 04/22/17 05:40 Carbon Dioxide 26 mmol/L (22-30) 04/22/17 05:40 Anion Gap 13 (10-20) 04/22/17 05:40 BUN 23 mg/dl (7-17) H 04/22/17 05:40 Creatinine 1.0 mg/dL (0.7-1.2) 04/22/17 05:40 Est GFR ( Amer) > 60 04/22/17 05:40 Est GFR (Non-Af Amer) 57 04/22/17 05:40 POC Glucose (mg/dL) 188 mg/dL (65-110) H 04/23/17 10:53 Random Glucose 148 mg/dL (65-105) H 04/22/17 05:40 Hemoglobin A1c 6.9 % (4.2-6.5) H 04/22/17 05:40 Calcium 9.5 mg/dL (8.4-10.2) 04/22/17 05:40 Total Bilirubin 0.5 mg/dl (0.2-1.3) 04/22/17 05:40 AST 20 U/L (14-36) 04/22/17 05:40 ALT 34 U/L (9-52) 04/22/17 05:40 Alkaline Phosphatase 131 U/L (38-126) H 04/22/17 05:40 Troponin I < 0.0120 ng/mL (0.00-0.120) 04/21/17 20:09 Total Protein 7.2 G/DL (6.3-8.2) 04/22/17 05:40 Albumin 4.0 g/dL (3.5-5.0) 04/22/17 05:40 Globulin 3.1 gm/dL (2.2-3.9) 04/22/17 05:40 Albumin/Globulin Ratio 1.3 (1.0-2.1) 04/22/17 05:40 Triglycerides 127 mg/DL (0-149) 04/22/17 05:40 Cholesterol 228 mg/dL (0-199) H 04/22/17 05:40 LDL Cholesterol Direct 147 mg/dL (0-129) H 04/22/17 05:40 HDL Cholesterol 34 MG/DL (30-70) 04/22/17 05:40 Thyroxine (T4) 8.62 ug/dl (5.5-11.0) 04/22/17 05:40 TSH 3rd Generation 1.83 mIU/ML (0.46-4.68) 04/22/17 05:40 Urine Color Yellow (YELLOW) 04/22/17 20:50 Urine Clarity Slighty-cloudy (Clear) 04/22/17 20:50 Urine pH 6.0 (5.0-8.0) 04/22/17 20:50 Ur Specific Carlin 1.017 (1.003-1.030) 04/22/17 20:50 Urine Protein Negative mg/dL (NEGATIVE) 04/22/17 20:50 Urine Glucose (UA) Neg mg/dL (Normal) 04/22/17 20:50 Urine Ketones Trace mg/dL (NEGATIVE) 04/22/17 20:50 Urine Blood Small (NEGATIVE) 04/22/17 20:50 Urine Nitrate Negative (NEGATIVE) 04/22/17 20:50 Urine Bilirubin Negative (NEGATIVE) 04/22/17 20:50 Urine Urobilinogen 0.2-1.0 mg/dL (0.2-1.0) 04/22/17 20:50 Ur Leukocyte Esterase Neg Lissy/uL (Negative) 04/22/17 20:50 Urine RBC (Auto) 4 /hpf (0-3) H 04/22/17 20:50 Urine Microscopic WBC 3 /hpf (0-5) 04/22/17 20:50 Ur Squamous Epith Cells 6 /hpf (0-5) H 04/22/17 20:50 Urine Bacteria Rare (<OCC) 04/22/17 20:50 - Date & Time of H&P Date of H&P: 04/22/17 Time of H&P: 11:40 Discharge Exam - Head Exam Head Exam: NORMAL INSPECTION Discharge Plan - Discharge Medications Prescriptions: Cephalexin [Keflex] 500 mg PO Q8 #21 capsule - Follow Up Plan Condition: FAIR Disposition: DISCHARGED TO HOME CARE Instructions: Ankle Fracture (DC), Diabetes Mellitus Type 2 in Adults (DC), ORIF of an Ankle Fracture (DC) Additional Instructions: patient cleared for discharge to Home today by , Rx for meds provided [facility] will deliver rolling walker and commode to home today 04/23/17 pt. will f/u with PMD Dr.Cynthia Steen in 1week f/u with in 1 week Referrals: Nakul Salazar MD [Staff Provider] - Mendoza Fuller DPM [Staff Provider] -
== END 2017-04-23 15:37 | disposition home health service (06) | DRG 494 ==
LOC: H.ER 19:18 → H.ERHOLD 22:13 → H.MEDSURG1 23:45
PROVIDERS: ADMIT Internal Medicine Pulmonary Disease; ATTEND Internal Medicine Pulmonary Disease
PROC: 3E0T33Z Introduction of Anti-inflammatory into Peripheral Nerves and Plexi, Percutaneous Approach (ICD-10-PCS; 2017-04-22)
PROC: 0QSK04Z Reposition Left Fibula with Internal Fixation Device, Open Approach (ICD-10-PCS; principal; 2017-04-22 17:00)
PROC: 3E0T3BZ Introduction of Anesthetic Agent into Peripheral Nerves and Plexi, Percutaneous Approach (ICD-10-PCS; 2017-04-22 17:00)
DX: S82.62XA Displaced fracture of lateral malleolus of left fibula, initial encounter for closed fracture (principal); R55 Syncope and collapse; E78.5 Hyperlipidemia, unspecified; E11.9 Type 2 diabetes mellitus without complications; Z98.84 Bariatric surgery status; W01.0XXA Fall on same level from slipping, tripping and stumbling without subsequent striking against object, initial encounter; Z79.4 Long term (current) use of insulin; Y92.522 Railway station as the place of occurrence of the external cause; Y93.9 Activity, unspecified